=== PATIENT | male | born 1970 | race Caucasian/White ===

== ENCOUNTER 2024-10-17 08:37 | Emergency (ER) | payer BC ==
[~2024-10-17] VITALS: Ht 190.5 cm; Wt 110.7 kg
[2024-10-17 09:20] VITALS: TEMP 97.5
[2024-10-17] MEDS ORDERED: ondansetron/PF 4mg/2ml inj IV ONE (09:20)
[2024-10-17] MEDS ORDERED: ketorolac trometh 15mg/ml vial 15 MG/ML ML IV ONE (09:20)
[2024-10-17] MEDS ORDERED: morphine 4 MG/ML inj SYRINge IV ONE (09:20)
[2024-10-17] MEDS ORDERED: normal saline 1000ML IV soln IVB ONE (09:20)
[2024-10-17 10:02] LABS: BASOPHILS # (AUTO) 0.1 X10'3 (0-0.2); BASOPHILS % (AUTO) 0.5 % (0-1); EOSINOPHILS # (AUTO) 0.1 X10'3 (0-0.9); EOSINOPHILS % (AUTO) 0.8 % (0-6); HEMATOCRIT 43.7 % (42.0-52.0); HEMOGLOBIN 14.8 g/dl (14.0-17.9); LYMPHOCYTES # (AUTO) 1.3 X10'3 (1.1-4.8); LYMPHOCYTES % (AUTO) 10.5 % (21-51); MEAN CORPUSCULAR HEMOGLOBIN 29.3 PG (27.0-31.0); MEAN CORPUSCULAR HGB CONC 33.8 g/dL (33.0-36.5); MEAN CORPUSCULAR VOLUME 86.7 FL (78-98); MEAN PLATELET VOLUME 7.5 FL (7.4-10.4); MONOCYTES # (AUTO) 0.9 X10'3 (0-0.9); MONOCYTES % (AUTO) 7.2 % (2-12); NEUTROPHILS # (AUTO) 10.1 X10'3 (1.8-7.7); PLATELET COUNT 301 X10'3 (140-440); RED BLOOD COUNT 5.04 X10'6 (4.70-6.10); RED CELL DISTRIBUTION WIDTH 13.4 % (11.5-14.5); WHITE BLOOD COUNT 12.4 X10'3 (4.5-11.0)
[2024-10-17 10:21] LABS: ALANINE AMINOTRANSFERASE 44 U/L (12-78); ALBUMIN 4.1 G/DL (3.4-5.0); ALBUMIN/GLOBULIN RATIO 1.6 (1.1-1.5); ALKALINE PHOSPHATASE 102 IU/L (46-116); ANION GAP 10 (8-16); ASPARTATE AMINO TRANSFERASE 27 U/L (10-37); BILIRUBIN,DIRECT 0.2 MG/DL (0-0.3); BILIRUBIN,TOTAL 0.5 MG/DL (0.1-1.0); BLOOD UREA NITROGEN 18 MG/DL (7-18); BUN/CREATININE RATIO 17.8 (10.0-20.0); CALCIUM 9.6 MG/DL (8.5-10.1); CHLORIDE 108 MMOL/L (99-107); CREATININE 1.01 MG/DL (0.60-1.10); GLUCOSE 131 MG/DL (70-104); LIPASE 38 U/L (16-77); POTASSIUM 4.2 MMOL/L (3.5-5.1); SODIUM 144 MMOL/L (135-145); TOTAL CARBON DIOXIDE 26.5 MMOL/L (24-32); TOTAL PROTEIN 6.7 G/DL (6.4-8.2); eCRCL 98 ML/MIN; eGFR 76 ML/MIN
[2024-10-17] MEDS ORDERED: FLO0.4C PO (10:54)
[2024-10-17] MEDS ORDERED: ONDA-245 PO (10:54)
[2024-10-17] MEDS ORDERED: IBUP-1986 PO (10:54)
[2024-10-17] MEDS ORDERED: HYDR-3964 PO (10:54)
[2024-10-17] MEDS: HYDROcodone/acetaminophen 10/325mg tab PO ONE (11:05)
[2024-10-17] MEDS: ondansetron 4mg rapidly disintigrating tab PO ONE (11:06)
[2024-10-17] MEDS: ketorolac trometh 30MG/ML vial 30 MG/ML VIAL IM ONE (11:07)
[2024-10-17 11:08] VITALS: BP 153/90; PULSE 70; RESP 15; O2SAT 96
[2024-10-17 11:09] LABS: BILIRUBIN,URINE NEGATIVE (Neg); CLARITY,URINE CLEAR (Clear); COLOR,URINE YELLOW (Yellow); GLUCOSE, URINE NEGATIVE (Neg); KETONES,URINE NEGATIVE (Neg); LEUKOCYTE ESTERASE ,URINE NEGATIVE (Neg); NITRITES, URINE NEGATIVE (Neg); OCCULT BLOOD,URINE NEGATIVE (Neg); PROTEIN,URINE NEGATIVE (Neg); UROBILINOGEN,URINE 0.2 E.U/dL (0.2-1.0)
[2024-10-17 11:13] LABS: UA COLLECTION TYPE CLN CATCH MIDSTREAM
[2024-10-17] MEDS ORDERED: HYDR-3965 PO (11:14)
== END 2024-10-17 11:27 | disposition home or self-care (01) ==
LOC: ER 08:38
DX: N20.1 Calculus of ureter (principal)
CPT/HCPCS: 36415; 74176; 80048; 80076; 81003; 83690; 84484; 85025; 93005; 96372; 99285; J1885